=== PATIENT | female | born 1995 | race African-American/Black ===

== ENCOUNTER 2023-07-10 04:52 | Day surgery (SDC) | payer MEDICAID ==
[~2023-07-10] VITALS: Ht 160 cm; Wt 134.5 kg
[2023-07-10] MEDS ORDERED: LACTATED RINGER'S 1,000 ML IV ONE (05:30)
[2023-07-10] MEDS ORDERED: KETAMINE 50mg/ML 1ml syringe IV ONE (05:42)
[2023-07-10 06:57] LABS: INR 1.03 (0.9-1.15); Partial Thromboplastin Time 31.5 SEC (24.5-34.5); Prothrombin Time 10.8 sec (9.3-11.8)
[2023-07-10 06:58] LABS: Alanine Aminotransferase 18 U/L (7-40); Albumin 4.2 g/dL (3.2-4.8); Alkaline Phosphatase 60 U/L (46-116); Anion Gap 9 (5-15); Aspartate Aminotransferase 18 U/L (13-40); BUN/Creatinine Ratio 7.1 (10.0-20.0); Bilirubin, Total 0.5 mg/dL (0.2-1.0); Blood Urea Nitrogen 6 mg/dL (9-23); Calcium 9.3 mg/dL (8.5-10.1); Carbon Dioxide 24 mmol/L (20-30); Chloride 104 mmol/L (98-107); Glucose 90 mg/dL (74-106); Sodium 137 mmol/L (136-145); Total Protein 6.9 g/dL (5.7-8.2)
[2023-07-10 06:59] LABS: Basophils # (auto) 0 10 ^3/uL (0-0.2); Basophils % (auto) 0.4 % (0.0-2.0); Eosinophils # (auto) 0.2 10 ^3/uL (0-0.8); Eosinophils % (auto) 2.1 % (0.0-7.0); Hemoglobin 13.5 g/dL (12.2-16.2); Lymphocytes # (auto) 2.9 10 ^3/uL (0.4-5.4); Mean Corpuscular Hemoglobin 27.8 pg (28.0-32.0); Mean Corpuscular Hgb Conc. 32.8 g/dL (32.0-36.0); Mean Corpuscular Volume 84.5 fL (80.0-100.0); Monocytes # (auto) 0.8 10 ^3/uL (0-1.3); Monocytes % (auto) 10.2 % (0.0-12.0); Neutrophils # (auto) 3.8 10 ^3/uL (1.6-8.6); Neutrophils % (auto) 49.3 % (37.0-80.0); Nucleated Red Blood Cells % 0.1 %; Red Blood Cells 4.85 10^6/uL (4.0-5.20); Red Cell Distribution Width 15.7 % (11.8-14.3); White Blood Cell 7.7 10^3/uL (4.4-10.8)
[2023-07-10] MEDS ORDERED: HYDROmorphone HCL 2 MG/ML VL/or syr IV PRN ×2 (07:30)
[2023-07-10] MEDS ORDERED: METOCLOPRAMIDE HCL 5MG/ml INJ 2ml VIAL IV PRN (07:30)
[2023-07-10] MEDS ORDERED: MORPHINE SULFATE INJ 2 MG/ml SYRG IV PRN (07:30)
[2023-07-10] MEDS ORDERED: DOXY-111 PO (08:15)
[2023-07-10] MEDS ORDERED: IBUP-1455 PO (08:15)
[2023-07-10] MEDS ORDERED: METH-822 PO (09:09)
[2023-07-10 09:22] VITALS: PULSE 113; RESP 12; TEMP 97.7; O2SAT 100
[2023-07-10 09:43] LABS: Platelet Estimate Adequate
[2023-07-10 09:44] LABS: Giant Platelets Few
[2023-07-10 10:07] VITALS: BP 131/74; PULSE 95; RESP 17; O2SAT 100
== END 2023-07-10 08:14 | disposition home or self-care (01) ==
LOC: ER 04:52 → SUR 05:41 → ER 14:13
PROVIDERS: ATTEND Obstetrics & Gynecology
DX: O02.0 Blighted ovum and nonhydatidiform mole (principal); R10.2 Pelvic and perineal pain; Z79.899 Other long term (current) drug therapy
CPT/HCPCS: 36415; 80053; 84702; 85025; 85610; 85730; 86850; 86900; 86901

== ENCOUNTER → 2023-09-01 | Outpatient (CLI) | payer MEDICAID ==
[~2023-09-01] MED LIST: DOXY-111 PO; IBUP-1455 PO; METH-822 PO
[2023-09-01 15:11] LABS: Basophils # (auto) 0.1 10 ^3/uL (0-0.2); Basophils % (auto) 0.6 % (0.0-2.0); Eosinophils # (auto) 0.1 10 ^3/uL (0-0.8); Hematocrit 39.7 % (36.0-46.0); Red Blood Cells 4.81 10^6/uL (4.0-5.20); White Blood Cell 8.3 10^3/uL (4.4-10.8)
[2023-09-01 15:13] LABS: Eosinophils % (auto) 1.1 % (0.0-7.0); Lymphocytes # (auto) 3.5 10 ^3/uL (0.4-5.4); Lymphocytes % (auto) 41.9 % (10.0-50.0); Mean Corpuscular Hgb Conc. 32.8 g/dL (32.0-36.0); Mean Corpuscular Volume 82.5 fL (80.0-100.0); Monocytes # (auto) 0.8 10 ^3/uL (0-1.3); Monocytes % (auto) 9.8 % (0.0-12.0); Neutrophils # (auto) 3.9 10 ^3/uL (1.6-8.6); Neutrophils % (auto) 46.6 % (37.0-80.0); Red Cell Distribution Width 15.3 % (11.8-14.3)
[2023-09-01 16:05] LABS: Alanine Aminotransferase 18 U/L (7-40); Albumin 4.2 g/dL (3.2-4.8); Alkaline Phosphatase 70 U/L (46-116); Anion Gap 6 (5-15); Aspartate Aminotransferase 25 U/L (13-40); BUN/Creatinine Ratio 6.3 (10.0-20.0); Bilirubin, Total 0.5 mg/dL (0.2-1.0); Blood Urea Nitrogen 7 mg/dL (9-23); Calcium 9.5 mg/dL (8.5-10.1); Carbon Dioxide 24 mmol/L (20-30); Chloride 108 mmol/L (98-107); Glucose 86 mg/dL (74-106); Potassium 4.2 mmol/L (3.5-5.1); Sodium 138 mmol/L (136-145); Total Protein 6.8 g/dL (5.7-8.2)
== END | disposition home or self-care (01) ==
LOC: LAB 14:53
PROVIDERS: ATTEND Obstetrics & Gynecology
DX: O02.0 Blighted ovum and nonhydatidiform mole (principal)
CPT/HCPCS: 36415; 80053; 84702; 85025

== ENCOUNTER → 2023-10-03 | Outpatient (CLI) | payer MEDICAID ==
[2023-10-03 16:03] LABS: Chloride 105 mmol/L (98-107); Potassium 4.1 mmol/L (3.5-5.1); Sodium 137 mmol/L (136-145)
[2023-10-03 16:04] LABS: Anion Gap 5 (5-15); Carbon Dioxide 27 mmol/L (20-30)
[2023-10-03 16:05] LABS: Calcium 9.3 mg/dL (8.5-10.1)
[2023-10-03 16:10] LABS: BUN/Creatinine Ratio 10.7 (10.0-20.0); Blood Urea Nitrogen 11 mg/dL (9-23); Glucose 94 mg/dL (74-106)
== END | disposition home or self-care (01) ==
LOC: LAB 15:25
PROVIDERS: ATTEND Obstetrics & Gynecology
DX: O01.9 Hydatidiform mole, unspecified (principal)
CPT/HCPCS: 36415; 80048; 81025

== ENCOUNTER → 2023-11-04 | Outpatient (CLI) | payer MEDICAID ==
[2023-11-04 16:32] LABS: Chloride 106 mmol/L (98-107); Sodium 136 mmol/L (136-145)
[2023-11-04 16:33] LABS: Anion Gap 5 (5-15); Carbon Dioxide 25 mmol/L (20-30)
[2023-11-04 16:34] LABS: Calcium 9.1 mg/dL (8.5-10.1)
[2023-11-04 16:38] LABS: Glucose 92 mg/dL (74-106)
[2023-11-04 16:39] LABS: BUN/Creatinine Ratio 10.5 (10.0-20.0); Blood Urea Nitrogen 10 mg/dL (9-23)
== END | disposition home or self-care (01) ==
LOC: LAB 15:40
PROVIDERS: ATTEND Obstetrics & Gynecology
DX: O01.9 Hydatidiform mole, unspecified (principal)
CPT/HCPCS: 36415; 80048; 84702

== ENCOUNTER → 2023-12-24 | Outpatient (CLI) | payer MEDICAID ==
[2023-12-24 15:30] LABS: Basophils # (auto) 0.1 10 ^3/uL (0-0.2); Basophils % (auto) 0.8 % (0.0-2.0); Eosinophils # (auto) 0 10 ^3/uL (0-0.8); Eosinophils % (auto) 0.5 % (0.0-7.0); Hematocrit 38.4 % (36.0-46.0); Hemoglobin 12.5 g/dL (12.2-16.2); Lymphocytes # (auto) 2.8 10 ^3/uL (0.4-5.4); Lymphocytes % (auto) 36.7 % (10.0-50.0); Mean Corpuscular Hemoglobin 26.4 pg (28.0-32.0); Mean Corpuscular Hgb Conc. 32.5 g/dL (32.0-36.0); Monocytes # (auto) 0.6 10 ^3/uL (0-1.3); Monocytes % (auto) 8.3 % (0.0-12.0); Neutrophils # (auto) 4.1 10 ^3/uL (1.6-8.6); Neutrophils % (auto) 53.7 % (37.0-80.0); Nucleated Red Blood Cells % 0.1 %; Red Blood Cells 4.74 10^6/uL (4.0-5.20); Red Cell Distribution Width 16.5 % (11.8-14.3); White Blood Cell 7.6 10^3/uL (4.4-10.8)
[2023-12-24 16:07] LABS: Amphetamine Screen, Urine Neg (NEGATIVE)
[2023-12-24 16:08] LABS: Barbiturate Scree,Urine Neg (NEGATIVE); Benzodiazephine Screen, Urine Neg (NEGATIVE); Cocaine Screen, Urine Neg (NEGATIVE); Opiate Scree,Urine Neg (NEGATIVE); Phencyclidine Screen, Urine Neg (NEGATIVE)
[2023-12-24 16:11] LABS: Alanine Aminotransferase 13 U/L (7-40); Albumin 4.3 g/dL (3.2-4.8); Alkaline Phosphatase 67 U/L (46-116); Anion Gap 7 (5-15); Aspartate Aminotransferase 13 U/L (13-40); BUN/Creatinine Ratio 6.2 (10.0-20.0); Bilirubin, Total 0.4 mg/dL (0.2-1.0); Blood Urea Nitrogen 6 mg/dL (9-23); Calcium 9.4 mg/dL (8.5-10.1); Carbon Dioxide 23 mmol/L (20-30); Chloride 107 mmol/L (98-107); Glucose 97 mg/dL (74-106); Potassium 3.6 mmol/L (3.5-5.1); Sodium 137 mmol/L (136-145); Total Protein 7.3 g/dL (5.7-8.2)
[2023-12-24 16:13] LABS: Cannabinoid Screen, Urine Neg (NEGATIVE)
[2023-12-24 17:03] LABS: Beta HCG, Quantitative 153.4 mIU/mL (1.5-4.2)
[2023-12-24 17:07] LABS: Thyroid Stimulating Hormone 2.18 uIU/mL (0.358-3.74)
[2023-12-25 07:06] LABS: RPR Non Reactive (Non Reactive)
[2023-12-25 08:06] LABS: Varicella Zoster IgG Antibody <135 index (Immune >165)
[2023-12-25 22:06] LABS: Chlamydia Trachomatis, NAA Negative (Negative); Neisseria gonorrhoeae, NAA Negative (Negative)
[2023-12-26 22:06] LABS: QuantiFERON-TB Gold Plus Negative (Negative)
== END | disposition home or self-care (01) ==
LOC: LAB 15:00
PROVIDERS: ATTEND Obstetrics & Gynecology
DX: Z34.80 Encounter for supervision of other normal pregnancy, unspecified trimester (principal); Z3A.00 Weeks of gestation of pregnancy not specified
CPT/HCPCS: 36415; 80053; 80307; 83036; 84439; 84443; 84702; 85025; 86592; 86703; 86762; 86787; 86850; 86900; 86901; 87086; 87340

== ENCOUNTER → 2023-12-26 | Outpatient (CLI) | payer MEDICAID | END | disposition home or self-care (01) | LOC: LAB 13:15 | PROVIDERS: ATTEND Obstetrics & Gynecology | DX: Z34.80 Encounter for supervision of other normal pregnancy, unspecified trimester (principal); Z3A.00 Weeks of gestation of pregnancy not specified | CPT/HCPCS: 36415; 84702 ==

== ENCOUNTER → 2024-01-15 | Outpatient (CLI) | payer MEDICAID | END | disposition home or self-care (01) | LOC: LAB 15:44 | PROVIDERS: ATTEND Obstetrics & Gynecology | DX: Z34.00 Encounter for supervision of normal first pregnancy, unspecified trimester (principal); Z3A.00 Weeks of gestation of pregnancy not specified; Z87.59 Personal history of other complications of pregnancy, childbirth and the puerperium | CPT/HCPCS: 36415; 84702 ==